=== PATIENT | female | born 1985 | race Caucasian/White ===

== ENCOUNTER 2018-10-17 20:34 | Emergency (ER) | payer MEDICAID, OTHER ==
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
[2018-10-17] MEDS ORDERED: Iopamidol 755 Mg/ML 75 ML Bottle IV ONE (21:37)
[2018-10-17] MEDS ORDERED: Sulfamethoxazole/Trimethoprim 800-160 MG Tab PO ONE (23:16)
[2018-10-17 23:34] VITALS: BP 101/58
== END 2018-10-17 23:30 | disposition home or self-care (01) ==
LOC: FB.ED 20:34
DX: J01.90 Acute sinusitis, unspecified (principal); B96.89 Other specified bacterial agents as the cause of diseases classified elsewhere; K05.6 Periodontal disease, unspecified; E87.6 Hypokalemia; E83.51 Hypocalcemia; Z88.0 Allergy status to penicillin
CPT/HCPCS: 36415; 70487; 80048; 82150; 85025; 99284; A9270; Q9967

== ENCOUNTER 2022-11-26 14:35 | Emergency (ER) | payer MEDICAID ==
[2022-11-26] MEDS ORDERED: Cephalexin 500 MG Cap PO ONE (14:36)
[2022-11-26 18:57] VITALS: BP 112/65; PULSE 87
== END 2022-11-26 15:25 | disposition home or self-care (01) ==
LOC: FB.ED 14:35
DX: K04.7 Periapical abscess without sinus (principal); Z88.0 Allergy status to penicillin; Z98.890 Other specified postprocedural states
CPT/HCPCS: 99282; A9270